=== PATIENT | male | born 1990 | race Caucasian/White ===

== ENCOUNTER 2024-03-23 11:34 | Emergency (ER) | payer OTHER, SELFPAY ==
--- OUTSIDE RECORDS SUMMARY | 2024-03-23 11:37 | XMS REPORT | Continuity of Care Document ---
Author Name Unknown Address [address] [facility] [address] [place] [address] [facility] Address [address] [facility] [address] [place] [address] Care Team Providers Care Meat Cutter Name Role Phone Unavailable Unavailable Unavailable Payers Payer Name Policy Type Policy Number Effective Date Expirati on Date Source Allergies, Adverse Reactions, Alerts Allergy Name Allergy Type Status Severity Reaction(s) Onset Date Inactive Date Treating Clinician Comments Source No Known Allergie s DA Active U 07-18 00:00: 00 [facility] No Known Allergie s DA Active U 07-18 00:00: 00 [facility] Encounters Start Date/Time End Date/Time Encounter Type Admission Type Attending Clinicians Care Facility Care Department Encounter ID Source 2019-07-18 02:22:00 Inpatient [facility] FANI [id number] [facility] Results Test Description Test Time Test Comments Results Result Co mments Source Urine Source? Clean CatchBASIC METABOLIC [id number] 04:01:00* Test Item Value Reference Range Interpretation Comme nts SODIUM (test code = NA) 144 mmol/L 136-145 N POTASSIUM (test code = K) 4.6 mmol/L 3.5-5.1 N CHLORIDE (test code = CL) 109.0 mmol/L 98-107 H CARBON DIOXIDE (test code = CO2) 30.0 mmol/L 21-32 N ANION GAP (test code = GAP) 9.6 10-20 L GLUCOSE (test code = GLU) 101 mg/dL 74-106 N BLOOD UREA NITROGEN (test code = BUN) 13 mg/dL 7-18 N GLOMERULAR FILTRATION RATE (test code = GFR) > 60 mL/min >=60 Estimated GFR by using Modified MDRD formula.Chronic kidney disease is defined as either kidney damageor GFR <60 mL/min/1.73 m2 for >3 months. CREATININE (test code = CREAT) 1.10 mg/dL 0.7-1.3 N BUN/CREATININE RATIO (test code = BUN/CREA) 11.8 10-20 N CALCIUM (test code = CA) 8.7 mg/dL 8.5-10.1 N HEPATIC FUNCTION [id number] 04:01:00* Test Item Value Reference Range Interpretation Comme nts TOTAL PROTEIN (test code = PROT) 7.8 gram/dL 6.4-8.2 N ALBUMIN (test code = ALB) 3.7 g/dL 3.4-5.0 N GLOBULIN (test code = GLOB) 4.1 gram/dL 2.7-4.2 N ALBUMIN/GLOBULIN RATIO (test code = A/G) 0.9 0.75-1.50 N BILIRUBIN TOTAL (test code = BILT) 0.20 mg/dL 0.0-1.0 N BILIRUBIN DIRECT (test code = BILD) 0.11 mg/dL 0.0-0.20 N SGOT/AST (test code = AST) 14 IUnit/L 15-37 L SGPT/ALT (test code = ALT) 24 IUnit/L 12-78 N ALKALINE PHOSPHATASE TOTAL (test code = ALKP) 76 IUnit/L 45-117 N Note change in reference range due to change in reagent. [id number] 04:01:00* Test Item Value Reference Range Interpretation Comme nts LIPASE (test code = LIP) 134 U/L 73.0-393.0 N BASIC METABOLIC [id number] 03:43:00* Test Item Value Reference Range Interpretation Comme nts SODIUM (test code = NA) 144 mmol/L 136-145 N POTASSIUM (test code = K) 4.6 mmol/L 3.5-5.1 N CHLORIDE (test code = CL) 109.0 mmol/L 98-107 H CARBON DIOXIDE (test code = CO2) mmol/L 21-32 ANION GAP (test code = GAP) 10-20 GLUCOSE (test code = GLU) mg/dL 74-106 BLOOD UREA NITROGEN (test co de = BUN) mg/dL 7-18 GLOMERULAR FILTRATION RATE ( test code = GFR) mL/min >=60 CREATININE (test code = CREAT) mg/dL 0.7-1.3 BUN/CREATININE RATIO (test c ode = BUN/CREA) 10-20 CALCIUM (test code = CA) mg/dL 8.5-10.1 HEPATIC FUNCTION [id number] 03:43:00* Test Item Value Reference Range Interpretation Comme nts TOTAL PROTEIN (test code = PROT) gram/dL 6.4-8.2 ALBUMIN (test code = ALB) g/dL 3.4-5.0 GLOBULIN (test code = GLOB) gram/dL 2.7-4.2 ALBUMIN/GLOBULIN RATIO (test code = A/G) 0.75-1.50 BILIRUBIN TOTAL (test code = BILT) mg/dL 0.0-1.0 BILIRUBIN DIRECT (test code = BILD) mg/dL 0.0-0.20 SGOT/AST (test code = AST) IUnit/L 15-37 SGPT/ALT (test code = ALT) IUnit/L 12-78 ALKALINE PHOSPHATASE TOTAL ( test code = ALKP) IUnit/L 45-117 [id number] 03:43:00* Test Item Value Reference Range Interpretation Comme nts LIPASE (test code = LIP) U/L 73.0-393.0 CBC W/O [id number] 03:26:00* Test Item Value Reference Range Interpretation Comme nts WHITE BLOOD CELL (test code = WBC) 8.9 K/mm3 4.5-12.5 N RED BLOOD CELL (test code = RBC) 4.44 mill/mm3 4.0-5.8 N HEMOGLOBIN (test code = HGB) 12.8 gram/dL 13.0-17.5 L HEMATOCRIT (test code = HCT) 40.5 % 42.0-52.0 L MEAN CELL VOLUME (test code = MCV) 91.2 fL 80-98 N MEAN CELL HGB (test code = MCH) 28.8 picogram 27.0-33.0 N MEAN CELL HGB CONCETRATION (test code = MCHC) 31.6 gram/dL 33.0-36.0 L RED CELL DISTRIBUTION WIDTH (test code = RDW) 13.5 % 11.6-16.2 N PLATELET COUNT (test code = PLT) 330 K/mm3 150-450 N MEAN PLATELET VOLUME (test c ode = MPV) 9.2 fL 6.7-11.0 N Notes Date/Time Note Provider Source 2019-07-18 03:44:00 [facility] ([facility] EMERGENCY PROVIDER REPORT REPORT#:[id number] REPORT STATUS: Signed DATE:07/18/19 TIME: 0344 PATIENT: SOLANGE MELGAR UNIT #: [id number] ROOM/BED: AGE: 29 SEX: M PCP PHYS: No Primary or Family Physician SERVICE AUTHOR: Apryl Ojeda V[employer]OU[employer]UX PRINTER * ALL edits or amendments must be made on the electronic/computer document * HPI-Abd Pain M Under 40 General Confirmed Patient Yes Patient Type New patient Initial Greet Date/Time 07/18/19 0226 PCP no pcp Presentation Chief Complaint Abdominal pain, Vomiting mild Hx Obtained From Patient Sudden in Onset? No Onset Occurred One week ago Symptom Duration Waxes and wanes Progression since Onset Waxes and wanes Caused by No trauma by history Location Epigastric Associated with Denies: Constipation, Diarrhea, Dysuria, Fever, Shortness of breath. Free Text HPI Notes Free Text HPI Notes 29-year-old male presents with complaints of intermittent epigastric pain for 1 week. Patient reports that tonight while he was brushing his teeth he gagged and vomited what appeared to be blood. Patient denies fever, diarrhea, URI symptoms. Denies history of any GI problems. Risk-Abd Pain M Under 40 )( Torsion No risk factors Review of Systems ROS Statements All systems rev neg except as marked. Basic Review of Systems Basic ROS EYES: No redness, ENT: No sore throat, HEM: No bleeding/bruising, SKIN : No rash, NEURO: No change MS, NEURO: No focal deficit, PSYCH: NL thought content Focused Review of Systems Constitutional Denies: Chills, Fatigue, Fever, Lethargy, Malaise. Respiratory Denies: Shortness of breath. GI Reports: Abdominal pain, Vomiting. Denies: Constipation, Diarrhea. Male Denies: Dysuria. Past Medical History - Adult Stated Complaint EPIGASTIC PAIN TIMES ONE WEEK Allergies Coded Allergies: No Known Allergies (07/18/19) Home Medications Reported Medications No Known Home Medications Pt reports no significant: Past medical history, Past surgical history Smoking status for patients 13 years old or older: Current every day smoker Ambulatory Status Independent Physical Exam Vital Signs Vital Signs First Documented: Result Date Time Pulse Ox 100 07/18 0227 B/P 145/75 07/18 022 B/P Mean 98 07/18 226 O2 Delivery Room air 07/18 226 Temp 36.9 07/18 226 Pulse 78 07/18 022 Resp 18 07/18 226 Last Documented: Result Date Time Pulse Ox 100 07/18 0500 B/P 138/64 07/18 0500 B/P Mean 88 07/18 0500 O2 Delivery Room air 07/18 050 Temp 37.0 07/18 050 Pulse 80 07/18 0500 Resp 18 07/18 0500 Review of Vital Signs Reviewed, Vital signs normal Basic Physical Exam Basic PE HEAD: Atraumatic/NC, EYES: PERRL, conj clear, ENT: Membranes moist, NECK: Supple, EXT: No gross abnormality, SKIN: No rashes, warm/dry, NEURO: alert oriented, NEURO: gross movement NL, PSYCH: NL thought content Focused PE General/Const General/Const Awake, Alert, No acute distress, Well appearing, Well developed , Well hydrated, Well nourished, Cooperative, Not toxic appearing MS Head Head Normocephalic Eyes Eyes PERRL Ears/Nose/Throat Ears/Nose/Throat Airway patent, Mucous membranes moist, Pharynx NL Resp/Chest Respiratory/Chest Breath sounds NL, Breath sounds = bilat, No respiratory distress, No rales, No rhonchi, No wheezing Cardiovascular Cardiovascular Heart rate NL, Regular rhythm, Heart sounds NL, Peripheral circulation NL Abdomen/GI Abdomen/GI Soft, Non-tender, McBurney's non-tender, No guarding, No rebound, BS normoactive, No distention, No hernia, No palpable mass MS Back Back Inspection NL, Non-tender, No CVA tenderness Skin Skin Color NL, Warm, Dry, Turgor NL Neurologic Neurologic Oriented X3, Speech NL, No motor deficits, No sensory deficits Interpretation Diagnostics Lab Results Interpretation Results Laboratory Tests 07/18/19309: [Embedded Image Not Available] Laboratory Tests: 07/18 0238 Chemistry Sodium (136 - 145 mmol/L) 144 Potassium (3.5 - 5.1 mmol/L) 4.6 Chloride (98 - 107 mmol/L) 109.0 H Carbon Dioxide (21 - 32 mmol/L) 30.0 Anion Gap (10 - 20) 9.6 L BUN (7 - 18 mg/dL) 13 Creatinine (0.7 - 1.3 mg/dL) 1.10 Glomerular Filtr Rate (>=60 mL/min) > 60 BUN/Creatinine Ratio (10 - 20) 11.8 Glucose (74 - 106 mg/dL) 101 Calcium (8.5 - 10.1 mg/dL) 8.7 Total Bilirubin (0.0 - 1.0 mg/dL) 0.20 Direct Bilirubin (0.0 - 0.20 mg/dL) 0.11 AST (15 - 37 IUnit/L) 14 L ALT (12 - 78 IUnit/L) 24 Total Alk Phosphatase (45 - 117 IUnit/L) 76 Total Protein (6.4 - 8.2 gram/dL) 7.8 Albumin (3.4 - 5.0 g/dL) 3.7 Globulin (2.7 - 4.2 gram/dL) 4.1 Albumin/Globulin Ratio (0.75 - 1.50) 0.9 Lipase (73.0 - 393.0 U/L) 134 Hematology WBC (4.5 - 12.5 K/mm3) 8.9 RBC (4.0 - 5.8 mill/mm3) 4.44 Hgb (13.0 - 17.5 gram/dL) 12.8 L Hct (42.0 - 52.0 %) 40.5 L MCV (80 - 98 fL) 91.2 MCH (27.0 - 33.0 picogram) 28.8 MCHC (33.0 - 36.0 gram/dL) 31.6 L RDW (11.6 - 16.2 %) 13.5 Plt Count (150 - 450 K/mm3) 330 MPV (6.7 - 11.0 fL) 9.2 Urines Urine Color (YELLOW) Light-Yellow Urine Appearance (CLEAR) CLEAR Urine pH (5.0 - 8.0) 6.5 Ur Specific Deep Water (1.001 - 1.035) 1.028 Urine Protein (NEGATIVE mg/dL) NEGATIVE Urine Glucose (UA) (NEGATIVE mg/dL) NEGATIVE Urine Ketones (NEGATIVE mg/dL) NEGATIVE Urine Blood (NEGATIVE mg/dL) 0.03 mg/dL (Trace) H Urine Nitrite (NEGATIVE) NEGATIVE Urine Bilirubin (NEGATIVE mg/dL) NEGATIVE Urine Urobilinogen (NEGATIVE mg/dL) Normal Ur Leukocyte Esterase (NEGATIVE Medardo/uL) NEGATIVE Urine RBC (0 - 5 #/HPF) 0-2 Urine WBC (0 - 5 per HPF) 0-5 Ur Epithelial Cells (FEW per HPF) FEW Amorphous Sediment (#/LPF) FEW Urine Bacteria (NONE #/HPF) FEW H Urine Mucus (FEW #/LPF) FEW Lab Statement Laboratory studies reviewed and considered in the medical decision-making. Point of Care Testing Pulse Oximetry Pulse Ox % 100 On: Room air Interpretation Interpreted by me Time 022 ECG #1 Interpretation Date 07/18/19 Time 0254 Interpreted by ED physician NL ECG Interpretation Normal rate, No acute ischemic changes, No STEMI Rate 80 Re-Evaluation MDM )( Re-Evaluation/Progress #1 Text/Dict Note patient resting comfortably playing on cell phone. No vmoiting while in ER. Abdomen remains soft and non tender. Time of Re-Eval 0450 )( Re-Eval Status Improved Plan Post Re-Eval Plan discharge ED Course Medication(s) Ordered Medication(s) Ordered: Central Nervous System Agents Sig/Keith Start time Last Medication Dose Route Stop Time Status Admin Ketorolac 30 MG X1ED STA 07/18 0238 DC 07/18 Tromethamine IV 07/18 0239 0333 Electrolytic, Caloric, And Dominik Sig/Keith Start time Last Medication Dose Route Stop Time Status Admin Sodium Chloride 1,000 ML X1ED STA 07/18 0238 DC 07/18 IV 07/18 0337 0332 Gastrointestinal Drugs Sig/Keith Start time Last Medication Dose Route Stop Time Status Admin Ondansetron HCl 4 MG X1ED PRN PRN 07/18 0245 DC 07/18 IV 0332 Famotidine 20 MG X1ED STA 07/18 0238 DC 07/18 IV 07/18 0239 0332 Patient Discharge Departure Vital Signs/Condition Vital Signs First Documented: Result Date Time Pulse Ox 100 07/18 226 B/P 145/75 07/18 226 B/P Mean 98 07/18 226 O2 Delivery Room air 07/18 226 Temp 36.9 07/18 226 Pulse 78 07/18 226 Resp 18 07/18 226 Last Documented: Result Date Time Pulse Ox 100 07/18 499 B/P 138/64 07/18 499 B/P Mean 88 07/18 499 O2 Delivery Room air 07/18 499 Temp 37.0 07/18 499 Pulse 80 07/18 499 Resp 18 07/18 499 All vital signs available at the time of this entry have been reviewed. Condition Stable Clinical Impression Clinical Impression Primary Impression: Abdominal pain Disposition Decision Discharge )( Discharged to Home Yes )( Time 0453 )( Date 07/18/19 Discharge/Care Plan Counseled Regarding Diagnosis, Lab results, Prescriptions, Need for follow-up, Smoking cessation, When to return to ED Prescriptions zofran, pepcid, carafate Prescriptions Reviewed Risks, Benefits, Alternative treatment Discharge Note I have spoken with the patient and/or caregivers. I have explained the patient's condition, diagnoses and treatment plan based on the information available to me at this time. I have answered the patient's and/or caregiver's questions and addressed any concerns. The patient and/or caregivers have as good an understanding of the patient's diagnosis, condition and treatment plan as can be expected at this point. The vital signs have been stable. The patient's condition is stable and appropriate for discharge from the emergency department. The patient will pursue further outpatient evaluation with the primary care physician or other designated or consulting physician as outlined in the discharge instructions. The patient and/or caregivers are agreeable to this plan of care and follow-up instructions have been explained in detail. The patient and/or caregivers have received these instructions in written format and have expressed an understanding of the discharge instructions. The patient and/or caregivers are aware that any significant change in condition or worsening of symptoms should prompt an immediate return to this or the closest emergency department or a call to 911. Quality Measures BP F/U for HTN Referred for BP f/u < 4wk, F/u with PCP/other doc Smoking Cessation Screened, tobacco user, Tobacco cess intervention Free Text Depart Notes Free Text Depart Notes Discussed lab and imaging findings, diagnosis, and need for follow-up with PCP and GI in 24 to 48 hours. Contact information given. Patient educated on rest, increase in p.o. fluids, appropriate use of pain medication as needed, avoidance of spicy, greasy, fatty foods, and other supportive measures. Return precautions given. at 0518 RPT #:[id number] END OF REPORT [facility] 2019-07-18 03:44:00 [facility] ([facility]) EMERGENCY PROVIDER REPORT REPORT#:[id number] REPORT STATUS: Signed DATE:07/18/19 TIME: 343 PATIENT: SOLANGE MELGAR UNIT #: [id number] ROOM/BED: AGE: 29 SEX: M PCP PHYS: No Primary or Family Physician SERVICE AUTHOR: Apryl Ojeda NP * ALL edits or amendments must be made on the electronic/computer document * Apryl Ojeda 07/18/19 0344: HPI-Abd Pain M Under 40 General Confirmed Patient Yes Patient Type New patient PCP no pcp Presentation Chief Complaint Abdominal pain, Vomiting mild Hx Obtained From Patient Sudden in Onset? No Onset Occurred One week ago Symptom Duration Waxes and wanes Progression since Onset Waxes and wanes Caused by No trauma by history Location Epigastric Associated with Denies: Constipation, Diarrhea, Dysuria, Fever, Shortness of breath. Free Text HPI Notes Free Text HPI Notes 29-year-old male presents with complaints of intermittent epigastric pain for 1 week. Patient reports that tonight while he was brushing his teeth he gagged and vomited what appeared to be blood. Patient denies fever, diarrhea, URI symptoms. Denies history of any GI problems. Risk-Abd Pain M Under 40 )( Torsion No risk factors Review of Systems ROS Statements All systems rev neg except as marked. Basic Review of Systems Basic ROS EYES: No redness, ENT: No sore throat, HEM: No bleeding/bruising, SKIN : No rash, NEURO: No change MS, NEURO: No focal deficit, PSYCH: NL thought content Focused Review of Systems Constitutional Denies: Chills, Fatigue, Fever, Lethargy, Malaise. Respiratory Denies: Shortness of breath. GI Reports: Abdominal pain, Vomiting. Denies: Constipation, Diarrhea. Male Denies: Dysuria. Past Medical History - Adult Stated Complaint EPIGASTIC PAIN TIMES ONE WEEK Allergies Coded Allergies: No Known Allergies (07/18/19) Home Medications Reported Medications No Known Home Medications Pt reports no significant: Past medical history, Past surgical history Smoking status for patients 13 years old or older: Current every day smoker Ambulatory Status Independent Physical Exam Vital Signs Vital Signs First Documented: Result Date Time Pulse Ox 100 07/18 022 B/P 145/75 07/18 022 B/P Mean 98 07/18 226 O2 Delivery Room air 07/18 226 Temp 36.9 07/18 226 Pulse 78 07/18 022 Resp 18 07/18 226 Last Documented: Result Date Time Pulse Ox 100 07/18 0500 B/P 138/64 07/18 050 B/P Mean 88 07/18 050 O2 Delivery Room air 07/18 499 Temp 37.0 07/18 050 Pulse 80 07/18 0500 Resp 18 07/18 0500 Review of Vital Signs Reviewed, Vital signs normal Basic Physical Exam Basic PE HEAD: Atraumatic/NC, EYES: PERRL, conj clear, ENT: Membranes moist, NECK: Supple, EXT: No gross abnormality, SKIN: No rashes, warm/dry, NEURO: alert oriented, NEURO: gross movement NL, PSYCH: NL thought content Focused PE General/Const General/Const Awake, Alert, No acute distress, Well appearing, Well developed , Well hydrated, Well nourished, Cooperative, Not toxic appearing MS Head Head Normocephalic Eyes Eyes PERRL Ears/Nose/Throat Ears/Nose/Throat Airway patent, Mucous membranes moist, Pharynx NL Resp/Chest Respiratory/Chest Breath sounds NL, Breath sounds = bilat, No respiratory distress, No rales, No rhonchi, No wheezing Cardiovascular Cardiovascular Heart rate NL, Regular rhythm, Heart sounds NL, Peripheral circulation NL Abdomen/GI Abdomen/GI Soft, Non-tender, McBurney's non-tender, No guarding, No rebound, BS normoactive, No distention, No hernia, No palpable mass MS Back Back Inspection NL, Non-tender, No CVA tenderness Skin Skin Color NL, Warm, Dry, Turgor NL Neurologic Neurologic Oriented X3, Speech NL, No motor deficits, No sensory deficits Interpretation Diagnostics Lab Results Interpretation Results Laboratory Tests 07/18/19309: [Embedded Image Not Available] Laboratory Tests: 07/18 0238 Chemistry Sodium (136 - 145 mmol/L) 144 Potassium (3.5 - 5.1 mmol/L) 4.6 Chloride (98 - 107 mmol/L) 109.0 H Carbon Dioxide (21 - 32 mmol/L) 30.0 Anion Gap (10 - 20) 9.6 L BUN (7 - 18 mg/dL) 13 Creatinine (0.7 - 1.3 mg/dL) 1.10 Glomerular Filtr Rate (>=60 mL/min) > 60 BUN/Creatinine Ratio (10 - 20) 11.8 Glucose (74 - 106 mg/dL) 101 Calcium (8.5 - 10.1 mg/dL) 8.7 Total Bilirubin (0.0 - 1.0 mg/dL) 0.20 Direct Bilirubin (0.0 - 0.20 mg/dL) 0.11 AST (15 - 37 IUnit/L) 14 L ALT (12 - 78 IUnit/L) 24 Total Alk Phosphatase (45 - 117 IUnit/L) 76 Total Protein (6.4 - 8.2 gram/dL) 7.8 Albumin (3.4 - 5.0 g/dL) 3.7 Globulin (2.7 - 4.2 gram/dL) 4.1 Albumin/Globulin Ratio (0.75 - 1.50) 0.9 Lipase (73.0 - 393.0 U/L) 134 Hematology WBC (4.5 - 12.5 K/mm3) 8.9 RBC (4.0 - 5.8 mill/mm3) 4.44 Hgb (13.0 - 17.5 gram/dL) 12.8 L Hct (42.0 - 52.0 %) 40.5 L MCV (80 - 98 fL) 91.2 MCH (27.0 - 33.0 picogram) 28.8 MCHC (33.0 - 36.0 gram/dL) 31.6 L RDW (11.6 - 16.2 %) 13.5 Plt Count (150 - 450 K/mm3) 330 MPV (6.7 - 11.0 fL) 9.2 Urines Urine Color (YELLOW) Light-Yellow Urine Appearance (CLEAR) CLEAR Urine pH (5.0 - 8.0) 6.5 Ur Specific Deep Water (1.001 - 1.035) 1.028 Urine Protein (NEGATIVE mg/dL) NEGATIVE Urine Glucose (UA) (NEGATIVE mg/dL) NEGATIVE Urine Ketones (NEGATIVE mg/dL) NEGATIVE Urine Blood (NEGATIVE mg/dL) 0.03 mg/dL (Trace) H Urine Nitrite (NEGATIVE) NEGATIVE Urine Bilirubin (NEGATIVE mg/dL) NEGATIVE Urine Urobilinogen (NEGATIVE mg/dL) Normal Ur Leukocyte Esterase (NEGATIVE Medardo/uL) NEGATIVE Urine RBC (0 - 5 #/HPF) 0-2 Urine WBC (0 - 5 per HPF) 0-5 Ur Epithelial Cells (FEW per HPF) FEW Amorphous Sediment (#/LPF) FEW Urine Bacteria (NONE #/HPF) FEW H Urine Mucus (FEW #/LPF) FEW Lab Statement Laboratory studies reviewed and considered in the medical decision-making. Point of Care Testing Pulse Oximetry Pulse Ox % 100 On: Room air Interpretation Interpreted by me Time 022 ECG #1 Interpretation Date 07/18/19 Time 0254 Interpreted by ED physician NL ECG Interpretation Normal rate, No acute ischemic changes, No STEMI Rate 80 Re-Evaluation MDM )( Re-Evaluation/Progress #1 Text/Dict Note patient resting comfortably playing on cell phone. No vmoiting while in ER. Abdomen remains soft and non tender. Time of Re-Eval 0450 )( Re-Eval Status Improved Plan Post Re-Eval Plan discharge ED Course Medication(s) Ordered Medication(s) Ordered: Central Nervous System Agents Sig/Keith Start time Last Medication Dose Route Stop Time Status Admin Ketorolac 30 MG X1ED STA 07/18 0238 DC 07/18 Tromethamine IV 07/18 0239 0333 Electrolytic, Caloric, And Dominik Sig/Keith Start time Last Medication Dose Route Stop Time Status Admin Sodium Chloride 1,000 ML X1ED STA 07/18 0238 DC 07/18 IV 07/18 0337 0332 Gastrointestinal Drugs Sig/Keith Start time Last Medication Dose Route Stop Time Status Admin Ondansetron HCl 4 MG X1ED PRN PRN 07/18 0245 DC 07/18 IV 0332 Famotidine 20 MG X1ED STA 07/18 0238 DC 07/18 IV 07/18 0239 0332 Patient Discharge Departure Vital Signs/Condition Vital Signs First Documented: Result Date Time Pulse Ox 100 07/18 226 B/P 145/75 07/18 226 B/P Mean 98 07/18 226 O2 Delivery Room air 07/18 226 Temp 36.9 07/18 226 Pulse 78 07/18 226 Resp 18 07/18 226 Last Documented: Result Date Time Pulse Ox 100 07/18 499 B/P 138/64 07/18 499 B/P Mean 88 07/18 499 O2 Delivery Room air 07/18 499 Temp 37.0 07/18 499 Pulse 80 07/18 499 Resp 18 07/18 499 All vital signs available at the time of this entry have been reviewed. Condition Stable Clinical Impression Clinical Impression Primary Impression: Abdominal pain Disposition Decision Discharge )( Discharged to Home Yes )( Time 0453 )( Date 07/18/19 Discharge/Care Plan Counseled Regarding Diagnosis, Lab results, Prescriptions, Need for follow-up, Smoking cessation, When to return to ED Prescriptions zofran, pepcid, carafate Prescriptions Reviewed Risks, Benefits, Alternative treatment Discharge Note I have spoken with the patient and/or caregivers. I have explained the patient's condition, diagnoses and treatment plan based on the information available to me at this time. I have answered the patient's and/or caregiver's questions and addressed any concerns. The patient and/or caregivers have as good an understanding of the patient's diagnosis, condition and treatment plan as can be expected at this point. The vital signs have been stable. The patient's condition is stable and appropriate for discharge from the emergency department. The patient will pursue further outpatient evaluation with the primary care physician or other designated or consulting physician as outlined in the discharge instructions. The patient and/or caregivers are agreeable to this plan of care and follow-up instructions have been explained in detail. The patient and/or caregivers have received these instructions in written format and have expressed an understanding of the discharge instructions. The patient and/or caregivers are aware that any significant change in condition or worsening of symptoms should prompt an immediate return to this or the closest emergency department or a call to 911. Quality Measures BP F/U for HTN Referred for BP f/u < 4wk, F/u with PCP/other doc Smoking Cessation Screened, tobacco user, Tobacco cess intervention Free Text Depart Notes Free Text Depart Notes Discussed lab and imaging findings, diagnosis, and need for follow-up with PCP and GI in 24 to 48 hours. Contact information given. Patient educated on rest, increase in p.o. fluids, appropriate use of pain medication as needed, avoidance of spicy, greasy, fatty foods, and other supportive measures. Return precautions given. Karma Rowe 07/19/19 1145: HPI-Abd Pain M Under 40 General Initial Greet Date/Time 07/18/19 0226 Patient Discharge Departure Supervising Physician Note MidLv Saw Pt Alone I have reviewed the PA/VIGOUREUX PRINTER's note and plan of care. I was available for consultation as needed at all times during the patient's visit in the emergency department. I agree with the clinical impression, plan and disposition. at 0518 at 1146 RPT #:[id number] END OF REPORT [facility]
[2024-03-23] MEDS ORDERED: HYDROCODONE/APAP 7.5/325 MG TAB ONE (12:12)
--- NOTE | 2024-03-23 13:49 | RAD REPORT ---
EXAM: Knee Right 3 View HISTORY: HS MAIN Pain;Swelling Bed Name: 11 COMPARISON: None TECHNIQUE: 3 views of the left knee were obtained. FINDINGS: Moderate to large effusion with hemarthrosis. Comminuted, mildly displaced fracture involvi ng tibial epiphysis, more so medially, with oblique extension to the articular surface of the lateral tibial plateau. No significant degenerative changes are seen. soft tissue swelling . IMPRESSION: Comminuted proximal tibial fracture as above with intra-articular extension, and hemarthr osis.
--- NOTE | 2024-03-23 14:21 | EDPHYS ---
Physician Documentation [facility] Name: Debora Baird Age: 33 yrs Sex: Male : 1990 Arrival Date: 03/23/2024 Time: 11:34 Bed 11 Private MD: ED Physician Mary Grossman HPI: 03/23 14:20 This 33 yrs old Male presents to ER via Wheelchair with complaints of Knee Injury. sd2 14:20 33 yo M presents with CC of R knee injury when he stepped wrong while at work for [employer] and heard a crunch and popping noise. Reports swelling to the area and inability to bear weight.. Historical: - Allergies: 12:02 No Known Allergies; db - PMHx: 12:02 None; db - PSHx: 12:02 None; db - Immunization history:: Adult Immunizations unknown. - Infectious Disease History:: Denies. - Social history:: Smoking status: Reported history of juuling and/or vaping. ROS: 14:20 Constitutional: Negative for fever, chills, and weight loss, MS/Extremity: Positive for sd2 injury and deformity, Skin: Negative for injury, rash, and discoloration, Neuro: Negative for headache, numbness and tingling. Exam: 14:20 Constitutional: This is a well developed, well nourished patient who is awake, alert, sd2 and in no acute distress. Head/Face: Normocephalic, atraumatic. Skin: Warm, dry with normal turgor. Normal color with no rashes, no lesions, and no evidence of cellulitis. MS/ Extremity: Pulses equal, no cyanosis. Neurovascular intact. Limited ROM of R knee 2/2 pain, swelling present with associated TTP anterior, medial and laterally, reports some decreased sensation to posterior knee Psych: Awake, alert, with orientation to person, place and time. Behavior, mood, and affect are within normal limits. Vital Signs: 12:01 BP 127 / 88; Pulse 87; Resp 16; Temp 98.6(O); Pulse Ox 99% ; Weight 81.65 kg; Height 6 db ft. 4 in. ; Pain 10/10; 14:00 BP 115 / 84; Pulse 85; Resp 16; Pulse Ox 100% ; me1 14:48 Pain 4/10; me1 15:30 BP 121 / 83; Pulse 91; Resp 16; Temp 98.1; Pulse Ox 100% ; me1 15:56 Pain 6/10; me1 12:01 Body Mass Index 21.91 (81.65 kg, 193.04 cm) db 12:01 Pain Scale: Adult db 14:48 Pain Scale: Adult me1 15:56 Pain Scale: Adult me1 MDM: 12:02 Patient medically screened. sd2 14:20 Differential Diagnosis fracture, contusion, ligamentous injury among others. Data sd2 reviewed: vital signs, nurses notes, radiologic studies. I considered the following discharge prescriptions or medication management in the emergency department Medications were administered in the Emergency Department. See AUG. 14:50 Management of patient was discussed with the following: ER physician at [address] ED course: Pt accepted to [facility] ER for transfer at this time. Pt stable for transfer. . 03/23 14:23 Order name: CBC with Diff; Complete Time: 15:31 03/23 14:23 Order name: BMP; Complete Time: 15:31 [facility] 03/23 12:10 Order name: XRAY Knee RIGHT 3 view; Complete Time: 13:52 sd2 Administered Medications: 12:16 Drug: Hydrocodone-Acetaminophen PO (7.5 mg-325 mg) 1 tabs PO once Route: PO; me1 13:09 Follow up: Response: No adverse reaction; Pain is decreased me1 14:41 Drug: morphine IVP or IV 4 mg IVP once over 4 mins Route: IVP; Infused Over: 4 mins; me1 Site: right antecubital; 14:48 Follow up: Pain 4/10 Adult; Response: No adverse reaction; Pain is decreased me1 14:41 Drug: Ondansetron IVP 4 mg IVP once; over 2 minutes Route: IVP; Site: right antecubital;me1 14:48 Follow up: Response: No adverse reaction; Nausea is decreased me1 15:55 Drug: HYDROmorphone IVP 0.5 mg IVP once Route: IVP; Site: right antecubital; me1 15:56 Follow up: Pain 6/10 Adult; Response: No adverse reaction; Pain is decreased me1 15:55 Drug: Ondansetron IVP 4 mg IVP once; over 2 minutes Route: IVP; Site: right antecubital;me1 15:56 Follow up: Response: No adverse reaction; Nausea is decreased me1 Disposition Summary: 03/23/24 14:20 Transfer Ordered Notes: Transfer Location: [facility] sd2 Reason: Higher level of care sd2 Condition: Stable sd2 Problem: new sd2 Symptoms: have improved sd2 Accepting Physician: Dr. Blankenship(03/23/24 15:57) me1 Diagnosis - Closed right tibial plateau fracture sd2 - Hemarthrosis sd2 Forms: - Medication Reconciliation Form sd2 - SBAR form sd2 Signatures: Dispatcher [employer] EDSiena Randall Stephanie, MD MD sd2 Shirley Strong RN RN db Christine Wooten RN RN me1 Corrections: (The following items were deleted from the chart) 15:21 14:20 Accepting MD [email or web address] eb 15:57 15:21 Dr. Blankenship me1
--- NOTE | 2024-03-23 14:21 | ER ---
Nurse's Notes [facility] Name: Debora Baird Age: 33 yrs Sex: Male : 1990 Arrival Date: 03/23/2024 Time: 11:34 Bed 11 Private MD: Diagnosis: Closed right tibial plateau fracture;Hemarthrosis Presentation: 03/23 12:01 Chief complaint: Patient states: RIGHT KNEE INJURY AFTER SLIPPING AND FALLING AT WORK db [employer]. UNABLE TO AMBULATE. COMPLAINS OF KNEE SWELLING AND PAIN. Coronavirus screen: Client denies travel out of the [place] in the last 14 days. At this time, the client does not indicate any symptoms associated with coronavirus-19. Ebola Screen: Patient negative for fever greater than or equal to 101.5 degrees Fahrenheit, and additional compatible Ebola Virus Disease symptoms Patient denies exposure to infectious person. Patient denies travel to an Ebola-affected area in the 21 days before illness onset. No symptoms or risks identified at this time. Initial Sepsis Screen: Does the patient meet any 2 criteria? No. Patient's initial sepsis screen is negative. Does the patient have a suspected source of infection? No. Patient's initial sepsis screen is negative. Risk Assessment: Do you want to hurt yourself or someone else? Patient reports no desire to harm self or others. Onset of symptoms was March 23, 2024. 12:01 Method Of Arrival: Wheelchair db 12:01 Acuity: LARS 4 db Triage Assessment: 12:02 General: Appears in no apparent distress. uncomfortable, Behavior is calm, cooperative. db Pain: Complains of pain in right leg. Neuro: Level of Consciousness is awake, alert, obeys commands, Oriented to person, place, time, situation. Musculoskeletal: Range of motion: limited in right knee Swelling present in right leg. Historical: - Allergies: 12:02 No Known Allergies; db - PMHx: 12:02 None; db - PSHx: 12:02 None; db - Immunization history:: Adult Immunizations unknown. - Infectious Disease History:: Denies. - Social history:: Smoking status: Reported history of juuling and/or vaping. Screenin:16 [facility] ED Fall Risk Assessment (Adult) History of falling in the last 3 months, me1 including since admission Yes- single mechanical fall (1 pt) Confusion or Disorientation No (0 pts) Intoxicated or Sedated No (0 pts) Impaired Gait No (0 pts) Mobility Assist Device Used No (0 pt) Altered Elimination No (0 pt) Score/Fall Risk Level 0 - 2 = Low Risk Maintained a safe environment, Provided non-skid footwear, Hourly rounding (assess needs \T\ fall precautionary measures) done. Abuse screen: Denies threats or abuse. Nutritional screening: No deficits noted. Tuberculosis screening: No symptoms or risk factors identified. Assessment: 12:06 General: Appears uncomfortable, well developed, well nourished, Behavior is calm, me1 cooperative, appropriate for age, Reports RIGHT KNEE INJURY AFTER SLIPPING AND FALLING AT WORK [employer]. UNABLE TO AMBULATE. COMPLAINS OF KNEE SWELLING AND PAIN. Pain: Complains of pain in right knee Pain currently is 10 out of 10 on a pain scale. Pain began suddenly, Is continuous. Neuro: Level of Consciousness is awake, alert, obeys commands, Oriented to person, place, time, situation, Appropriate for age. Cardiovascular: Patient's skin is warm and dry. Respiratory: Airway is patent Respiratory effort is even, unlabored, Respiratory pattern is regular, symmetrical. GI: No signs and/or symptoms were reported involving the gastrointestinal system. : No signs and/or symptoms were reported regarding the genitourinary system. EENT: No signs and/or symptoms were reported regarding the EENT system. Derm: Skin is intact, is healthy with good turgor, Skin is pink, warm \T\ dry. Musculoskeletal: Reports pain in right knee. Injury Description: RIGHT KNEE INJURY AFTER SLIPPING AND FALLING AT WORK [employer]. UNABLE TO AMBULATE. COMPLAINS OF KNEE SWELLING AND PAIN. 15:23 General: Report called to MALACHI Lin at in [facility] me1 Vital Signs: 12:01 BP 127 / 88; Pulse 87; Resp 16; Temp 98.6(O); Pulse Ox 99% ; Weight 81.65 kg; Height 6 db ft. 4 in. ; Pain 10/10; 14:00 BP 115 / 84; Pulse 85; Resp 16; Pulse Ox 100% ; me1 14:48 Pain 4/10; me1 15:30 BP 121 / 83; Pulse 91; Resp 16; Temp 98.1; Pulse Ox 100% ; me1 15:56 Pain 6/10; me1 12:01 Body Mass Index 21.91 (81.65 kg, 193.04 cm) db 12:01 Pain Scale: Adult db 14:48 Pain Scale: Adult me1 15:56 Pain Scale: Adult me1 ED Course: 11:38 Patient arrived in ED. mr 11:42 Mary Grossman MD is Attending Physician. sd2 12:02 Triage completed. db 12:02 Arm band placed on Patient placed in an exam room. db 12:03 Mary Lainez, RN is Primary Nurse. cm10 12:05 Christine Wooten, MALACHI is Primary Nurse. me1 12:16 Patient has correct armband on for positive identification. Bed in low position. Call me1 light in reach. Side rails up X2. Provided Education on: POC. Verbalized understanding. . 12:16 No provider procedures requiring assistance completed. Patient did not have IV access me1 during this emergency room visit. 12:54 XRAY Knee RIGHT 3 view In Process Unspecified. EDMS 14:00 Client placed on continuous cardiac and pulse oximetry monitoring. NIBP monitoring me1 applied. Pulse ox on. NIBP on. 14:36 BMP Sent. me1 14:36 CBC with Diff Sent. me1 14:36 Initial lab(s) drawn, by me, sent to lab. Inserted saline lock: 20 gauge in right me1 antecubital area, using aseptic technique. 15:16 \T\ 1440 transfer initiated by Clementina Hilton from the [facility]/ \T\8962 administrative approval given by Yobani Ortiz Rn/ patient has been accepted to [facility] ED/ Dr. Elizabeth Blankenship has accepted the patient in transfer/ report to be called to [phone]. Administered Medications: 12:16 Drug: Hydrocodone-Acetaminophen PO (7.5 mg-325 mg) 1 tabs PO once Route: PO; me1 13:09 Follow up: Response: No adverse reaction; Pain is decreased me1 14:41 Drug: morphine IVP or IV 4 mg IVP once over 4 mins Route: IVP; Infused Over: 4 mins; me1 Site: right antecubital; 14:48 Follow up: Pain 4/10 Adult; Response: No adverse reaction; Pain is decreased me1 14:41 Drug: Ondansetron IVP 4 mg IVP once; over 2 minutes Route: IVP; Site: right antecubital;me1 14:48 Follow up: Response: No adverse reaction; Nausea is decreased me1 15:55 Drug: HYDROmorphone IVP 0.5 mg IVP once Route: IVP; Site: right antecubital; me1 15:56 Follow up: Pain 6/10 Adult; Response: No adverse reaction; Pain is decreased me1 15:55 Drug: Ondansetron IVP 4 mg IVP once; over 2 minutes Route: IVP; Site: right antecubital;me1 15:56 Follow up: Response: No adverse reaction; Nausea is decreased me1 Medication: 14:47 VIS not applicable for this client. il1 Outcome: 14:20 ER care complete, transfer ordered by . sd2 15:56 Transferred by ground EMS me1 15:57 Transferred to [facility], Transfer form completed. X-rays sent w/ patient. me1 15:57 Condition: stable 15:57 Instructed on the need for transfer, 15:57 Patient left the ED. me1 Signatures: Dispatcher [employer] EDMS Megan Martin, Reg Reg mr FranciscoSiena Stephanie, MD MD sd2 Shirley Strong RN RN db Mary Lainez RN RN cm10 Christine Wooten RN RN me1 Corrections: (The following items were deleted from the chart) 12:06 12:01 Chief complaint: Patient states: RIGHT KNEE INJURY AFTER SLIPPING AND FALLING AT [facility] WORK [employer]OX TO[employer]. UNABLE TO AMBULATE. COMPLAINS OF KNEE SWELLING AND PAIN db
[2024-03-23] MEDS ORDERED: MORPHINE 4 MG/ML SYR ONE (14:38)
[2024-03-23] MEDS ORDERED: ONDANSETRON 4 MG/2 ML VIAL ONE ×2 (14:38→15:42)
[2024-03-23 14:46] LABS: Absolute Basophils 0.1 K/uL (0-0.5); Absolute Eosinophils 0.1 K/uL (0-0.5); Absolute Monocytes 1.1 K/uL (0.1-1.3); Absolute Neutrophil 12.4 K/uL (1.8-8.0); Basophils % 0.4 % (0-1.3); Eosinophils % 0.6 % (0-4.4); Hematocrit 35.9 % (39.6-49.0); Lymphocytes % 12.8 % (15.3-44.8); MCH 29.7 pg (27.0-35.0); MCHC 33.4 g/dL (32.0-36.0); MCV 89.1 fL (80-100); MPV 7.4 fL (7.6-11.3); Monocytes % 6.7 % (3.3-12.3); Neutrophils % 79.5 % (41.7-73.7); Platelets 327 thou/uL (152-406); RBC Red Blood Cell Count 4.03 M/uL (4.33-5.43); Red Cell Distribution Width 13.2 % (12.1-15.2)
[2024-03-23 14:57] LABS: Anion Gap 5.1 mEq/L (5.0-15.0); Potassium 4.1 mEq/L (3.5-5.1)
[2024-03-23] MEDS ORDERED: HYDROMORPHONE HCL 0.5 MG/0.5 ML INJ ONE (15:41)
[2024-03-23 16:14] VITALS: O2SAT 100
[2024-03-23 16:16] VITALS: BP 121/83; TEMP 98.1
== END 2024-03-23 15:57 | disposition short-term general hospital (02) ==
LOC: ER 11:34
DX: S82.141A Displaced bicondylar fracture of right tibia, initial encounter for closed fracture (principal); M25.061 Hemarthrosis, right knee
CPT/HCPCS: 36415; 80048; 85025; 96374; 96375; 99285; J1170; J2405